=== PATIENT | male | born 1975 | race Caucasian/White ===

== ENCOUNTER → 2017-03-27 | Emergency (ER) | payer MEDICAID ==
[~2017-03-27] VITALS: Ht 167.6 cm; Wt 108.9 kg
[2017-03-27 17:32] VITALS: BP 128/92
== END | disposition home or self-care (01) ==
LOC: ER 17:20
DX: R51 Headache (principal); F41.9 Anxiety disorder, unspecified
CPT/HCPCS: A4606; Z7610

== ENCOUNTER 2019-03-28 11:47 | Inpatient (IN) | payer MEDICAID ==
[~2019-03-28] VITALS: Ht 167.6 cm; Wt 115.7 kg
--- NOTE | 2019-03-28 11:56 | NUR ---
PT BIB SELF C/O RIGHT FLANK PAIN STARTED TODAY, 10/10 PS, PT IS AAOX4, NOT IN RESPIRATORY DISTRESS, V/S STABLE, KEPT RESTED AND COMFORATBLE, WILL CONTINUE TO MONITOR.
--- NOTE | 2019-03-28 12:09 | NUR ---
IV LINE ESTABLSIHED, BLOOD DRAWNED AND SENT TO LAB.
[2019-03-28] MEDS ORDERED: KETOROLAC TROMETHAMINE INJ 30 MG/ML VIAL ONE (12:27)
[2019-03-28] MEDS ORDERED: ONDANSETRON HCL/PF 4 MG/2 ML VIAL ONE ×2 (12:27→20:26)
[2019-03-28] MEDS ORDERED: KETOROLAC TROMETHAMINE INJ 30 MG/ML VIAL IV ONE (12:30)
[2019-03-28] MEDS ORDERED: ONDANSETRON HCL/PF 4 MG/2 ML VIAL IVP ONE (12:30)
[2019-03-28] MEDS ORDERED: IV NS 0.9% 1,000 ML BAG IV ONE ×2 (12:30→14:00)
--- NOTE | 2019-03-28 12:33 | NUR ---
PT IS WHEELED TO CT SCAN VIA WHEELCHAIR.
[2019-03-28 12:34] LABS: BASOPHILS # (AUTO) 0.1 /CMM (0.0-0.2); BASOPHILS % (AUTO) 0.8 % (0.0-2.0); EOSINOPHILS % (AUTO) 2.7 % (0.0-6.0); HEMATOCRIT 45 % (39-51); HEMOGLOBIN 15.5 g/dL (13.5-17.5); LYMPHOCYTES # (AUTO) 1.2 /CMM (0.8-4.8); LYMPHOCYTES % (AUTO) 14.8 % (20.0-44.0); MEAN CORPUSCULAR HGB CONC 34 g/dl (31.0-36.0); MEAN CORPUSCULAR VOLUME 85 fL (80-96); MONOCYTES # (AUTO) 0.6 /CMM (0.1-1.30); MONOCYTES % (AUTO) 7.4 % (2.0-12.0); NEUTROPHILS # (AUTO) 6.1 /CMM (1.8-8.9); NEUTROPHILS % (AUTO) 74.3 % (43.0-81.0); PLATELET COUNT (AUTO) 263 /CMM (150-450); RED BLOOD CELL COUNT(AUTO) 5.32 MIL/uL (4.5-6.0); WHITE BLOOD COUNT (AUTO) 8.3 K/uL (4.3-11.0)
[2019-03-28 12:37] LABS: CALCIUM, SERUM 9.5 mg/dL (8.5-10.1); CREATININE 1.4 mg/dL (0.6-1.3); POTASSIUM 4.4 mmol/L (3.5-5.1)
[2019-03-28 12:43] LABS: ALBUMIN 3.9 g/dL (3.4-5.0); BILIRUBIN,DIRECT 0.1 mg/dL (0.0-0.2); BILIRUBIN,TOTAL 0.2 mg/dL (0.2-1.0); TOTAL PROTEIN, SERUM 7.6 g/dL (6.4-8.2)
[2019-03-28] MEDS ORDERED: HYDROMORPHONE 1 MG/1 ML DISP.SYRIN ONE (13:29)
--- NOTE | 2019-03-28 13:35 | NUR ---
PER MD VELASQUEZ HE IS IN [place], DR KLEIN CANNOT COVER HIM UNTIL THURSDAY 03/29. ADVISES TO TRANSFER OUT URGENT CASES.
[2019-03-28] MEDS ORDERED: diphenhydrAMINE HCL 50 MG/ML VIAL ONE (13:39)
--- NOTE | 2019-03-28 13:41 | NUR ---
CALLED [facility] FOR UROLOGIST TRANSFER OF THIS PT
[2019-03-28] MEDS ORDERED: HYDROMORPHONE 1 MG/1 ML DISP.SYRIN IV ONE (14:00)
[2019-03-28] MEDS ORDERED: PIPERACILLIN /TAZOBACTAM 3.375 G in IV D5W 50 ML IV ONE (14:00)
[2019-03-28] MEDS ORDERED: diphenhydrAMINE HCL 50 MG/ML VIAL IV ONE (14:00)
--- NOTE | 2019-03-28 14:20 | NUR ---
PER KACI CABRERA [facility] ARE [facility]
--- NOTE | 2019-03-28 14:29 | NUR ---
CALLED [facility], STATES UROLOGIST DOES NOT SEE PT'S WITH NO INSURANCE
[2019-03-28] MEDS ORDERED: LEVOFLOXACIN 750 MG /D5W 150ML 0 ML IV ONE (14:39)
--- NOTE | 2019-03-28 14:43 | NUR ---
SPOKE TO [facility] ADMITING RN CATHLEEN ROJAS CALL HOSPITALIST DR ADAM TO DISCUSS CASE
[2019-03-28] MEDS ORDERED: LEVOFLOXACIN 500 MG /D5W 100ML 100 ML IV ONE (14:45)
[2019-03-28] MEDS ORDERED: LEVOFLOXACIN 750 MG /D5W 150ML PIGGYBACK IV ONE (15:00)
[2019-03-28] MEDS ORDERED: FLAGYL/NS RTU 500 MG/100 ML PIGGYBACK IV ONE (15:00)
--- NOTE | 2019-03-28 15:38 | NUR ---
CALLED [facility] ANSWERING SERVICE, DR JAIR CHRISTIANSON.
--- NOTE | 2019-03-28 15:47 | NUR ---
PER YANELIS GIBSON AT [facility] ER THEY DO NOT HAVE UROLOGY
--- NOTE | 2019-03-28 16:04 | NUR ---
PER LAC [facility]IE[facility] TRANSFER CM, SHE WILL PLACE PT ON LIST. FAXED [facility] [facility] [phone]
--- NOTE | 2019-03-28 17:17 | NUR ---
SAMMY ADAM ([facility]) FOR CONSULT REGARDING UROLOGIST FOR THIS PATIENT
--- NOTE | 2019-03-28 18:14 | NUR ---
PER DR MAZARIEGOS, DR ADAM CANNOT ACCEPT PT DIRECTLY, MUST GO THROUGH CASE MANAGEMENT
--- NOTE | 2019-03-28 19:36 | NUR ---
URINE COLLECTED AND SENT TO THE LAB
[2019-03-28 19:38] LABS: APPEARANCE,URINE Slightly Cloudy (CLEAR); BILIRUBIN,URINE Negative (NEGATIVE); BLOOD, URINE Trace-intact Ery/uL (NEGATIVE); COLOR,URINE Light yellow (YELLOW); KETONES,URINE Trace (NEGATIVE); LEUKOCYTE ESTERASE ,URINE Trace (NEGATIVE); NITRITE, URINE Positive (NEGATIVE); PH,URINE 5.5 (5.0-8.0); PROTEIN,URINE Negative (NEGATIVE); UGLUCOSE Negative (NEGATIVE); UROBILINOGEN,URINE 0.2 EU/dL (0.2)
[2019-03-28 20:01] LABS: RBC,URINE 0-3 /HPF (0-2)
[2019-03-28 20:02] LABS: SQUAMOUS EPITHELIAL CELL,UR Rare /HPF (None Seen)
[2019-03-28 20:03] LABS: BACTERIA,URINE Moderate /HPF (None Seen)
[2019-03-28] MEDS ORDERED: MORPHINE SULFATE INJ 2 MG/ML DISP.SYRIN ONE (20:26)
[2019-03-28] MEDS ORDERED: MORPHINE SULFATE INJ 2 MG/ML DISP.SYRIN IV ONE (20:30)
[2019-03-28] MEDS ORDERED: ONDANSETRON HCL/PF - ER 4 MG/2 ML VIAL IV ONE (20:30)
[2019-03-29] MEDS ORDERED: FLAGYL/NS RTU 500 MG/100 ML PIGGYBACK IV ONE (01:00)
[2019-03-29] MEDS ORDERED: KETOROLAC TROMETHAMINE INJ 30 MG/ML VIAL IV ONE ×2 (01:00→08:30)
[2019-03-29] MEDS ORDERED: KETOROLAC TROMETHAMINE INJ 30 MG/ML VIAL ONE (01:12)
[2019-03-29] MEDS ORDERED: METRONIDAZOLE 500MG/ NS 100ML 100 ML IV ONE (01:12)
--- NOTE | 2019-03-29 01:14 | NUR ---
FOLLOWED UP WITH [facility]. STILL NO BEDS AVAILABLE.
--- NOTE | 2019-03-29 02:05 | NUR ---
Patient is resting comfortably in bed with eyes closed. Easily aroused. will cont to monitor ,
--- NOTE | 2019-03-29 02:50 | NUR ---
CALLED [facility], CURRENTLY NO BEDS AVAILABLE. WILL FAX OVER [employer] TO [employer] TO BE PLACED ON A LIST.
--- NOTE | 2019-03-29 06:56 | NUR ---
dr benavides at the bed side
--- NOTE | 2019-03-29 07:30 | NUR ---
REPORT RECEIVED FROM ERNIE HILARIO FOR [facility]
[2019-03-29] MEDS ORDERED: KETOROLAC TROMETHAMINE 15 MG/ML VIAL ONE (08:28)
--- NOTE | 2019-03-29 08:28 | NUR ---
CALLED OFFICE OF DR KLEIN, WILL CALL BACK
--- NOTE | 2019-03-29 09:20 | NUR ---
PER DR KLEIN'S OFFICE, WILL CALL BACK
--- NOTE | 2019-03-29 10:33 | NUR ---
DR LEAL SPEAKING WITH DR KLEIN
[2019-03-29] MEDS ORDERED: LORA-259 PO (10:55)
[2019-03-29] MEDS ORDERED: CITA40TA11 PO (10:55)
--- NOTE | 2019-03-29 11:09 | NUR ---
CALL FROM [facility], NO BED BUT WILL ESCALATE AND WILL CALL BACK IF THEY GET A BED
--- NOTE | 2019-03-29 11:22 | NUR ---
PANEL ON-CALL PAGED AGAIN
--- NOTE | 2019-03-29 12:09 | NUR ---
REPORT GIVEN TO CLIFTON HILARIO
--- NOTE | 2019-03-29 12:36 | NUR ---
TRANSFERRED TO MS UNIT BY TECH VIA WHEELCHAIR.
--- NOTE | 2019-03-29 12:45 | NUR ---
MS RN OPENING NOTES RECEIVED PATIENT FROM ER VIA W/C. TRANSFERRED TO BED. DENIES ANY C/O PAIN NOR DISCOMFORT AT THIS TIME. NO C/O OF NAUSEA NOR VOMITING. ALERT AND ORIENTED X4. NO SOB. RIGHT AC #18 INTACT AND PATENT, NO S/S OF COMPLICATIONS. ORIENTED TO ROOM CALL LIGHT, REMOTE. ALL BELONGINGS ACCOUNTED FOR. PER PATIENT, HE WILL GIVE HIS WALLET TO HIS DAD WHEN THEY COME TO VISIT TO TAKE HOME. BED IN LOWEST POSITION. CALL LIGHT WITHIN REACH. BED ALARM ON. BED SIDERAILS UP X2.
[2019-03-29] MEDS ORDERED: IV 1/2NS 1000 ML 1,000 ML IV PRN (13:06)
--- NOTE | 2019-03-29 13:21 | NUR ---
MS RN NOTES RELAYED PRELIMINARY RESULTS TO OF BLOOD CULTURE GRAM POSITIVE COCCI, WITH NO NEW ORDER AT THIS TIME.
[2019-03-29] MEDS ORDERED: ACETAMINOPHEN 325 MG TABLET PO PRN (13:30)
[2019-03-29] MEDS ORDERED: MAG HYDROX/AL HYDROX/SIMETH 30 ML UDC PO PRN (13:30)
[2019-03-29] MEDS ORDERED: ZOLPIDEM TARTRATE 5 MG TABLET PO PRN (13:30)
[2019-03-29] MEDS ORDERED: HYDROCODONE/APAP 5/325MG 1 EACH TABLET PO PRN (13:30)
[2019-03-29] MEDS ORDERED: MAGNESIUM HYDROXIDE 30 ML UDC PO PRN (13:30)
[2019-03-29] MEDS ORDERED: Z GUARD REMEDY 2 OZ OINT TP PRN (13:30)
[2019-03-29] MEDS ORDERED: KETOROLAC TROMETHAMINE INJ 30 MG/ML VIAL IM PRN (13:30)
[2019-03-29] MEDS ORDERED: LEVOFLOXACIN 500 MG /D5W 100ML 500 MG in PREMIX 1 EA IV SCH (15:00)
[2019-03-29] MEDS: KETOROLAC TROMETHAMINE 15 MG/ML VIAL IM PRN (17:04)
[2019-03-29] MEDS: ONDANSETRON HCL/PF 4 MG/2 ML VIAL IVP PRN (17:57)
--- NOTE | 2019-03-29 19:30 | NUR ---
RN NOTES RECEIVED P[T. AWAKE OPN BED A/OX4, AMBULATORY,DENIES PAIN,NO SOB,CALL LIGHT WITHIN REACH, SIDERAILSUPX2, CONTINUE TO MONITOR
--- NOTE | 2019-03-29 19:42 | NUR ---
MS RN CLOSING NOTES PATIENT RESTING COMFORTABLY IN BED, WITH FATHER AND SON AT BEDSIDE. DR. KLEIN (UROLOGIST) CAME AND ASSESSED PATIENT. DISCUSSED REGARDING KIDNEY STONE AND OUTPATIENT SERVICES AND EMERGENCY SERVICES. PATIENT VERBALIZES UNDERSTANDING. DENIES ANY C/O PAIN NOR DISCOMFORT AT THIS TIME. NO C/O OF NAUSEA NOR VOMITING. RIGHT AC #18 INTACT AND PATENT, NO S/S OF COMPLICATIONS INFUSING .45 %NS @ 120ML/HR CALEB WELL. BED IN LOWEST POSITION. CALL LIGHT WITHIN REACH. BED ALARM ON. BED SIDERAILS UP X2.
[2019-03-29 20:00] VITALS: BP 109/68
[2019-03-29 20:28] VITALS: BP 109/68
[2019-03-29] MEDS: METRONIDAZOLE 500MG/ NS 100ML 500 MG in PREMIX 1 EA IV SCH (20:44)
[2019-03-30] MEDS ORDERED: KETOROLAC TROMETHAMINE INJ 30 MG/ML VIAL ONE (05:54)
[2019-03-30] MEDS: METRONIDAZOLE 500MG/ NS 100ML 500 MG in PREMIX 1 EA IV SCH (05:58)
[2019-03-30] MEDS: ONDANSETRON HCL/PF 4 MG/2 ML VIAL IVP PRN (05:58)
[2019-03-30] MEDS: KETOROLAC TROMETHAMINE 15 MG/ML VIAL IM PRN (06:00)
--- NOTE | 2019-03-30 06:36 | NUR ---
RN NOTES COMPLAINED OF ABDOMINAL PAIN AND FEELING NAUSEOUS- TORADOL 30MG IM GIVEN FOR PAIN AND ZOFRAN 4 MG IV GIVEN FOR NAUSEA, MORNING CARE RENDERED, CALL LIGHT WITHIN REACH,DORA UPX2, PT. NEEDS ATTENDED
[2019-03-30 07:23] LABS: BASOPHILS # (AUTO) 0.1 /CMM (0.0-0.2); BASOPHILS % (AUTO) 0.7 % (0.0-2.0); EOSINOPHILS % (AUTO) 0.2 % (0.0-6.0); HEMATOCRIT 39 % (39-51); HEMOGLOBIN 13.1 g/dL (13.5-17.5); LYMPHOCYTES # (AUTO) 0.6 /CMM (0.8-4.8); LYMPHOCYTES % (AUTO) 5.9 % (20.0-44.0); MEAN CORPUSCULAR HGB CONC 34 g/dl (31.0-36.0); MEAN CORPUSCULAR VOLUME 84 fL (80-96); MONOCYTES # (AUTO) 1.1 /CMM (0.1-1.30); MONOCYTES % (AUTO) 10.2 % (2.0-12.0); NEUTROPHILS # (AUTO) 8.9 /CMM (1.8-8.9); PLATELET COUNT (AUTO) 208 /CMM (150-450); RED BLOOD CELL COUNT(AUTO) 4.61 MIL/uL (4.5-6.0); WHITE BLOOD COUNT (AUTO) 10.8 K/uL (4.3-11.0)
--- NOTE | 2019-03-30 07:32 | NUR ---
RN MS OPENING NOTES Patient received on room air, no sob noted. Patient remains a/o x4 and denies pain at this time. Patient remains on 1/2 NS@120 mL per hour, Right AC #18 remains patent. Patient's side rails up x2, bed at the lowest setting, call light within reach.
[2019-03-30 07:52] LABS: ALBUMIN 3.1 g/dL (3.4-5.0); BILIRUBIN,TOTAL 0.6 mg/dL (0.2-1.0); CALCIUM, SERUM 8.8 mg/dL (8.5-10.1); CREATININE 1.9 mg/dL (0.6-1.3); MAGNESIUM 1.7 mg/dL (1.8-2.4); PHOSPHORUS 2.7 mg/dL (2.5-4.9); TOTAL PROTEIN, SERUM 6.6 g/dL (6.4-8.2)
[2019-03-30 08:00] VITALS: BP 110/80
[2019-03-30] MEDS ORDERED: KETOROLAC TROMETHAMINE INJ 60 MG/2 ML VIAL IM PRN (08:47)
[2019-03-30] MEDS ORDERED: Magnesium 1GM/D5W 100ML PREMIX 100 ML IV SCH (09:31)
--- NOTE | 2019-03-30 11:41 | NUR ---
RN MS NOTES DISCHARGE Patient discharged around this time, no sob noted, vital signs stable. Patient's IV line removed and minimal bleeding is noted. Patient has all paper work, signed and within his possession, left abdominal scratch taken photo of and is in papers chart. No questions from patient regarding his discharge instructions, patient stated that he is aware of the things he has to do.
== END 2019-03-30 11:40 | disposition home or self-care (01) | DRG 463 ==
LOC: ER 11:47 → MED 03-29 11:48
PROVIDERS: ADMIT Internal Medicine; ATTEND Internal Medicine
DX: N13.6 Pyonephrosis (principal); N17.0 Acute kidney failure with tubular necrosis; E66.01 Morbid (severe) obesity due to excess calories; Z68.41 Body mass index [BMI] 40.0-44.9, adult; K57.32 Diverticulitis of large intestine without perforation or abscess without bleeding; Z87.442 Personal history of urinary calculi; Z88.0 Allergy status to penicillin; N10 Acute pyelonephritis
CPT/HCPCS: 36415; 80048-TC; 80053-TC; 80061-TC; 80076-TC; 81000-TC; 83605-TC; 83690-TC; 83735-TC; 84100-TC; 84550-TC; 85025-TC; 87040-TC; 87081-TC; 87086-TC; A4216; G0378; J1170; J1200; J1885; J1956; J2270; J2405; J2543; J3475; J3490; J7030; J7060